=== PATIENT | male | born 1940 | race Caucasian/White ===

== ENCOUNTER 2018-04-20 14:10 | Emergency (ER) | payer MEDICARE, BC ==
--- NOTE | 2018-04-20 14:33 | Emergency Department Record ---
History of Present Illness - General Chief Complaint: Cough Stated Complaint: COUGHING AND WHEEZING Time Seen by Provider: 04/20/18 14:27 Source: Patient Mode of Arrival: Ambulatory Limitations: No limitations - History of Present Illness Initial Comments: The patient is here due to a 4 day hx of cough, congestion, and mild sputum production. He denies any Cp, SOB, RITIKA, or fever. The patient is concerned he may pneumonia so he decided to come to the ER. MD Complaint: Cough, Nasal congestion, Rhinorrhea Onset/Timin -: Days(s) Consistency: Intermittent - Related Data Home Medications Medication Instructions Recorded Confirmed Last Taken Apixaban [Eliquis] 5 mg PO DAILY 04/20/18 04/20/18 Unknown Lisinopril [Zestril] 5 mg PO DAILY 04/20/18 04/20/18 Unknown Sotalol HCl [Sotalol] 80 mg PO DAILY 04/20/18 04/20/18 Unknown Previous Rx's Medication Instructions Recorded Doxycycline Monohydrate [Mondoxyne 100 mg PO BID #14 capsule 04/20/18 ] Allergies Allergy/AdvReac Type Severity Reaction Status Date / Time No Known Drug Allergies Allergy Verified 10/13/14 23:38 Travel Screening - Travel/Exposure Within Last 30 Days Have you traveled within the last 30 days?: No Review of Systems Constitutional: Denies: Chills, Fever Eyes: Denies: Eye discharge ENT: Reports: Congestion Respiratory: Reports: Cough. Denies: Dyspnea Past Medical History - SOCIAL HISTORY Smoking Status: Never smoker Alcohol Use: None Drug Use: None - RESPIRATORY Hx Respiratory Disorders: No - CARDIOVASCULAR Hx Cardio Disorders: Yes Hx Heart Attack: Yes Hx Hypertension: Yes Hx Irregular Heartbeat: Yes (hx of afib) - NEURO Hx Neuro Disorders: No - GI Hx GI Disorders: No - Hx Genitourinary Disorders: No - ENDOCRINE Hx Endocrine Disorders: No - MUSCULOSKELETAL Hx Musculoskeletal Disorders: No - PSYCH Hx Psych Problems: No - HEMATOLOGY/ONCOLOGY Hx Hematology/Oncology Disorders: No Family Medical History Any Significant Family History?: Yes Hx Heart Disease: Father, Mother Physical Exam - General General Appearance: Alert, Oriented x3, Cooperative, No acute distress - Head Head exam: Atraumatic, Normocephalic, Normal inspection - Eye Eye exam: Normal appearance, PERRL - ENT Throat exam: Normal inspection. negative: Tonsillar erythema, Tonsillar exudate - Neck Neck exam: Normal inspection, Full ROM. negative: Tenderness - Respiratory Respiratory exam: Normal lung sounds bilaterally. negative: Respiratory distress - Cardiovascular Cardiovascular Exam: Irregular rhythm. negative: Regular rate, Normal rhythm - GI/Abdominal GI/Abdominal exam: Soft, Normal bowel sounds. negative: Tenderness - Extremities Extremities exam: Normal inspection, Full ROM, Normal capillary refill. negative: Tenderness - Neurological Neurological exam: Alert. negative: Motor sensory deficit Course Vital Signs 04/20/18 14:22 Temperature 98.5 F Pulse Rate 74 Respiratory 20 Rate Blood Pressure 150/97 Pulse Ox 96 - Reevaluation(s) Reevaluation #1: The patient is doing well. I did discuss the neg xray with him and the need to F /U if not better. 04/20/18 14:56 Medical Decision Making - Data Complexity MDM Data: X-Ray Ordered and/or Reviewed - Radiology Data Radiology results: Report reviewed (CXR: Neg.) Disposition Disposition: Discharge Clinical Impression: Bronchitis Disposition: Home, Self-Care Condition: (2) Stable Instructions: Cold Symptoms (ED) Additional Instructions: Please take the Doxycycline as directed and see your family doctor if not better in 3 days. Return to the ER for any worsening cough, or any fever, shortness of breath or chest pain. Prescriptions: Doxycycline Monohydrate [Mondoxyne Nl] 100 mg PO BID #14 capsule Forms: Patient Portal Access Time of Disposition: 14:58 Quality - Quality Measures Quality Measures: N/A - Blood Pressure Screening View Details: Yes Does Patient Have Any of the Following: No Blood Pressure Classification: Hypertensive Reading Systolic Measurement: 150 Diastolic Measurement: 97 Screening for High Blood Pressure: < First Hypertensive BP, F/U Documented > [ G8950] First Hypertensive Follow-up Interventions: Referral to alternative/primary care provider.
--- NOTE | 2018-04-22 09:23 | RADIOLOGY REPORT ---
EXAM: CHEST, TWO VIEWS HISTORY: PRODUCTIVE COUGH AND WHEEZING FOR A WEEK. TECHNIQUE: PA and lateral views of the chest were obtained. Comparison: Two view chest 10/14/14. FINDINGS: The heart size is within normal limits. No definite acute infiltrate seen. No pleural effusion or pneumothorax evident. Prominent spurring in the spine. Mild elevation of the right hemidiaphragm anteriorly. IMPRESSION: PROMINENT SPURRING IN THE SPINE. NO ACUTE INFILTRATE IDENTIFIED. MILD ELEVATION OF THE RIGHT HEMIDIAPHRAGM ANTERIORLY. JOB [facility]BER: [id number] [facility]
== END 2018-04-20 15:21 | disposition home or self-care (01) ==
LOC: ER 14:10
DX: J20.9 Acute bronchitis, unspecified (principal); I10 Essential (primary) hypertension; I48.91 Unspecified atrial fibrillation; I25.2 Old myocardial infarction; Z79.01 Long term (current) use of anticoagulants
CPT/HCPCS: 71046; 99283

== ENCOUNTER 2019-05-28 02:59 | Emergency (ER) | payer MEDICARE, BC ==
--- NOTE | 2019-05-28 03:11 | Emergency Department Record ---
History of Present Illness - General Chief complaint: Weakness Stated complaint: NEAR SYNCOPE Time Seen by Provider: 05/28/19 03:09 Source: Patient Mode of Arrival: Ambulatory Limitations: No limitations - History of Present Illness Initial comments: 78 yo male presents to ED for evaluation of feeling "light headed" this morning. Patient reports that he fell asleep on the couch, stood up this morning and felt light headed. Patient denies vertigo symptoms, reports he was able to stand and walk to the bathroom without difficulty but continues to feel weak and light headed. Patient reports previous [place] [address] Moreno. Patient denies fevers, chills, or recent illness. MD Complaint: Generalized weakness Onset/Timin -: Minutes(s) Location: Generalized Severity: Moderate Consistency: Constant Improves with: Rest Worsens with: Exertion Associated Symptoms: Other - Amanda Coma Scale Eye Response: (4) Open spontaneously Motor Response: (6) Obeys commands Verbal Response: (5) Oriented Mary Total: 15 - Related Data Home Medications Medication Instructions Recorded Confirmed Last Taken Hydrocodone/Acetaminophen [[place] 1 each PO Q8H PRN 05/28/19 05/28/19 05/27/19 7.5-325 Tablet] Allergies Allergy/AdvReac Type Severity Reaction Status Date / Time No Known Drug Allergies Allergy Unverified 05/24/19 12:55 Travel Screening - Travel/Exposure Within Last 30 Days Have you traveled within the last 30 days?: No - Travel Symptoms Symptom Screening: None Review of Systems Constitutional: Reports: Weakness. Denies: Chills, Fever, Malaise, Night sweats Eyes: Denies: Eye discharge, Eye pain ENT: Denies: Congestion, Ear pain, Epistaxis Respiratory: Denies: Cough, Dyspnea Cardiovascular: Denies: Chest pain, Dyspnea on exertion Endocrine: Denies: Fatigue, Heat or cold intolerance Gastrointestinal: Denies: Abdominal pain, Nausea, Vomiting Genitourinary: Denies: Incontinence, Retention Musculoskeletal: Denies: Arthralgia, Back pain, Gout, Joint swelling Skin: Denies: Bruising, Change in color Neurological: Denies: Abnormal gait, Confusion, Headache, Seizure Psychiatric: Denies: Anxiety Hematological/Lymphatic: Reports: Easy bleeding, Easy bruising. Denies: Anemia, Blood Clots Past Medical History - SOCIAL HISTORY Smoking Status: Never smoker Drug Use: None - RESPIRATORY Hx Respiratory Disorders: No - CARDIOVASCULAR Hx Cardio Disorders: Yes Hx Heart Attack: Yes Hx Hypertension: Yes Hx Irregular Heartbeat: Yes (hx of afib) - NEURO Hx Neuro Disorders: No - GI Hx GI Disorders: No - Hx Genitourinary Disorders: No - ENDOCRINE Hx Endocrine Disorders: No - MUSCULOSKELETAL Hx Musculoskeletal Disorders: No - PSYCH Hx Psych Problems: No - HEMATOLOGY/ONCOLOGY Hx Hematology/Oncology Disorders: No Family Medical History Hx Heart Disease: Father, Mother Physical Exam - General General Appearance: Alert, Oriented x3, Cooperative, No acute distress, Other (No focal deficits on examination) Limitations: No limitations - Head Head exam: Atraumatic, Normocephalic, Normal inspection Head exam detail: negative: Abrasion, Contusion, Fregoso's sign, General tenderness, Hematoma, Laceration - Eye Eye exam: Normal appearance. negative: Conjunctival injection, Periorbital swelling, Periorbital tenderness, Scleral icterus - ENT Ear exam: negative: Auricular hematoma, Auricular trauma Nasal Exam: negative: Active bleeding, Discharge, Dried blood, Foreign body Mouth exam: negative: Drooling, Laceration, Muffled voice, Tongue elevation - Neck Neck exam: Normal inspection. negative: Meningismus, Tenderness - Respiratory Respiratory exam: Normal lung sounds bilaterally. negative: Rales, Respiratory distress, Rhonchi, Stridor - Cardiovascular Cardiovascular Exam: Regular rate, Normal rhythm, Normal heart sounds - GI/Abdominal GI/Abdominal exam: Soft. negative: Rebound, Rigid, Tenderness - Rectal Rectal exam: Deferred - exam: Deferred - Extremities Extremities exam: Normal inspection. negative: Pedal edema, Tenderness - Back Back exam: Denies: CVA tenderness (R), CVA tenderness (L) - Neurological Neurological exam: Alert, Oriented X3. negative: Motor sensory deficit - Psychiatric Psychiatric exam: Normal affect, Normal mood - Skin Skin exam: Normal color. negative: Abrasion Type of lesion: negative: abrasion Course Vital Signs 05/28/19 03:06 Pulse Rate [ 55 L [employer] ] Respiratory 20 Rate Blood Pressure 166/95 [Left Arm] Pulse Ox 97 - Reevaluation(s) Reevaluation #1: 05/28/19 03:16 EKG: Sinus bradycardia 55, PVCs LAD, Q waves III, AVF, V1-V3 Unchanged from 04/22/19 Reevaluation #2: 05/28/19 05:09 Laboratory studies were reviewed and are grossly unremarkable for an acute process. CT Brain: No acute process. Patient was updated on all results, reports that he feels much better and is asking to go home. Patient sits upright from supine, ambulates with steady gait, and reports that his symptoms have resolved. No clinical evidence for CVA or cerebellar dysfunction, no evidence for cardiac etiology. Patient appears stable for discharge at this time with instructions to return to ED if his symptoms worsen/reoccur. Medical Decision Making - Lab Data Result diagrams: 05/28/19 03:17 05/28/19 03:17 Disposition Disposition: Discharge Clinical Impression: Lightheaded Disposition: Home, Self-Care Condition: (2) Stable Instructions: Lightheadedness (ED) Additional Instructions: Return to ED if your symptoms worsen or if you have any concerns. Drink plenty of fluids, rest. Follow-up with your family doctor in 3-5 days as directed. Forms: Patient Portal Access Time of Disposition: 05:14 Quality - Quality Measures Quality Measures: N/A - Blood Pressure Screening Does Patient Have Any of the Following: Active Dx of HTN Blood Pressure Classification: Hypertensive Reading Systolic Measurement: 158 Diastolic Measurement: 95 Screening for High Blood Pressure: Patient Exclusion, Hx of HTN [G9744]
[2019-05-28] MEDS ORDERED: 0.9 % SODIUM CHLORIDE 1000ML 500 ML IV SCH (03:15)
[2019-05-28 03:27] LABS: ABSOLUTE NEUTROPHIL COUNT 3.29; BASO % 0.5 % (0-6); EOS % 1.5 % (0-6); GRAN % 44.9 % (47-80); HEMATOCRIT 44.9 % (42.0-52.0); HEMOGLOBIN 15.9 gm/dl (14.0-18.0); LYMPH % 40.8 % (16-45); MEAN CELL VOLUME 90.5 fl (81-97); MEAN CORPUSCULAR HEMOGLOBIN 32.1 pg (27-33); MEAN CORPUSCULAR HGB CONC 35.4 g/dl (32-36); MEAN PLATELET VOLUME 9.7 fl (7.4-10.4); MONO % 12.3 % (0-9); PLATELET COUNT 193 K/uL (130-400); RED BLOOD COUNT 4.96 M/uL (4.40-5.70); RED CELL DISTRIBUTION WIDTH 12.6 % (11.5-14.5); WHITE BLOOD COUNT W/O DIFF 7.3 K/uL (4.2-12.2)
[2019-05-28 04:08] LABS: URINE APPEARANCE CLEAR; URINE BILIRUBIN NEGATIVE (NEGATIVE); URINE BLOOD NEGATIVE (NEGATIVE); URINE COLOR YELLOW; URINE GLUCOSE (UA) NEGATIVE (NEGATIVE); URINE KETONE NEGATIVE (NEGATIVE); URINE LEUKOCYTE ESTERASE NEGATIVE (NEGATIVE); URINE NITRITE NEGATIVE (NEGATIVE); URINE PROTEIN NEGATIVE (NEGATIVE); URINE UROBILINOGEN 0.2 E.U./dL (0.20 - 1.00)
[2019-05-28 04:14] LABS: BLOOD UREA NITROGEN 15 mg/dL (8-23); EST GLOMERULAR FILTRATION RATE > 60 mL/min
[2019-05-28 04:15] LABS: TOTAL PROTEIN 6.8 g/dL (6.6-8.7)
[2019-05-28 04:17] LABS: GLUCOSE,RANDOM 139 mg/dL (74-109)
[2019-05-28 04:19] LABS: ALT/SGPT 10 U/L (<41)
[2019-05-28 04:20] LABS: ALB/GLOB RATIO 1.5 (1.1-1.8); ALBUMIN 4.1 g/dL (4.0-5.0); ALKALINE PHOSPHATASE 54 U/L (40-129); AST/SGOT 13 U/L (10.0-50.0)
--- NOTE | 2019-05-30 17:35 | CT SCAN REPORT ---
EXAM: CT SCAN HEAD WO CONTRAST HISTORY: DIZZINESS. NEAR SYNCOPE UPON STANDING. TECHNIQUE: Routine noncontrast CT of the brain. COMPARISON: None. FINDINGS: The subarachnoid spaces are dilated consistent with age-related atrophy. The ventricles are not enlarged. Mild white matter changes are identified manifested by subtle lucencies scattered in each cerebral hemisphere relatively symmetrically. Benign bilateral basal ganglia calcification identified, right greater than left. No other area of abnormally increased or decreased attenuation is noted throughout the brain substance. No abnormal extraaxial fluid collection. There is minimal mucosal thickening scattered within several paranasal sinuses. The mastoid air cells are clear. There is prominent cerumen suggested bilaterally, left greater than right. IMPRESSION: 1. NO CT EVIDENCE OF ACUTE MAJOR VESSEL INFARCT, INTRACRANIAL HEMORRHAGE, NOR MASS. 2. MILD AGE-RELATED ATROPHY. MILD WHITE MATTER CHANGES ARE NONSPECIFIC BUT LIKELY AREAS OF CHRONIC MICROVASCULAR ISCHEMIA. 3. PROMINENT CERUMEN SUGGESTED IN EACH EXTERNAL AUDITORY CANAL. 4. MINOR MUCOSAL THICKENING SCATTERED IN SEVERAL PARANASAL SINUSES. JOB [facility]BER: [id number] [facility]
== END 2019-05-28 05:18 | disposition home or self-care (01) ==
LOC: ER 02:59
DX: R42 Dizziness and giddiness (principal); R53.1 Weakness; I10 Essential (primary) hypertension; R49.1 Aphonia; I25.2 Old myocardial infarction
CPT/HCPCS: 70450; 80053; 81003; 84484; 85025; 99284